=== PATIENT | female | born 1955 | race Caucasian/White ===

== ENCOUNTER → 2022-01-08 | Outpatient (CLI) | payer OTHER ==
[~2022-01-08] MED LIST: ADDERALL PO; BUPR100ER PO; HYDACE5 PO; RXCLIN PO; RXHYDACE PO; VALA500 PO
== END ==
LOC: LAB SHORT 17:35
DX: R30.0 Dysuria (principal)
CPT/HCPCS: 87086

== ENCOUNTER → 2023-07-12 | Outpatient (CLI) | payer OTHER ==
[~2023-07-12] MED LIST changes: +EUTHYROX50 MC1 PO; +PROGESTERONE200 MG PO; +TRAZ50 PO
== END | disposition home or self-care (01) ==
LOC: LAB 08:15 → LAB SHORT 08:15
DX: N39.0 Urinary tract infection, site not specified (principal)
CPT/HCPCS: 87077; 87086; 87186